=== PATIENT | male | born 1990 | race Caucasian/White ===

== ENCOUNTER 2019-12-22 18:14 | Emergency (ER) | payer BC, OTHER ==
[2019-12-22 18:35] VITALS: BP 135/84; PULSE 113
[2019-12-22] MEDS ORDERED: Ibuprofen 600 MG Tab PO ONE (18:59)
--- NOTE | 2019-12-22 19:02 | EDM.PDOC ---
ED HPI GENERAL MEDICAL PROBLEM - General Chief Complaint: General Stated Complaint: POSSIBLE COVID Time Seen by Provider: 12/22/19 18:46 Source of Information: Reports: Patient, RN Notes Reviewed History Limitations: Reports: No Limitations - History of Present Illness INITIAL COMMENTS - FREE TEXT/NARRATIVE: 28-year-old gentleman presents emergency department a sudden onset of fever body aches and diarrhea, he does have the possibility of Covid exposure - Related Data Allergies Allergy/AdvReac Type Severity Reaction Status Date / Time No Known Allergies Allergy Verified 12/22/19 18:34 Home Meds: Home Meds NK [No Known Home Meds] 10/26/15 [History] Past Medical History Musculoskeletal History: Reports: Fracture Endocrine/Metabolic History: Reports: Obesity/BMI 30+ - Infectious Disease History Infectious Disease History: Reports: Chicken Pox - Past Surgical History Head Surgeries/Procedures: Reports: None Endocrine Surgical History: Reports: None Musculoskeletal Surgical History: Reports: None Dermatological Surgical History: Reports: None Social & Family History - Tobacco Use Tobacco Use Status *Q: Current Every Day Tobacco User Years of Tobacco use: 8 Packs/Tins Daily: 0.5 Used Tobacco, but Quit: No Second Hand Smoke Exposure: No - Caffeine Use Caffeine Use: Reports: Coffee, Energy Drinks, Soda, Tea - Recreational Drug Use Recreational Drug Use: No ED ROS GENERAL - Review of Systems Review Of Systems: See Below Constitutional: Reports: Fever, Chills HEENT: Reports: No Symptoms Respiratory: Reports: No Symptoms Cardiovascular: Reports: No Symptoms GI/Abdominal: Reports: Diarrhea Musculoskeletal: Reports: Muscle Pain ED EXAM, GENERAL - Physical Exam Exam: See Below Exam Limited By: No Limitations General Appearance: Alert, WD/WN, No Apparent Distress Respiratory/Chest: No Respiratory Distress, Lungs Clear, Normal Breath Sounds, No Accessory Muscle Use, Chest Non-Tender Cardiovascular: Regular Rate, Rhythm, No Murmur Course - Vital Signs Last Recorded V/S: Last Vital Signs Temp 101.2 F H 12/22/19 18:40 Pulse 113 H 12/22/19 18:40 Resp 16 12/22/19 18:40 BP 135/84 12/22/19 18:40 Pulse Ox 99 12/22/19 18:40 - Orders/Labs/Meds Orders: Active Orders 24 hr Category Date Time Status CORONAVIRUS COVID-19, [facility] Stat Lab 12/22/19 19:00 Ordered Ibuprofen [Motrin] Med 12/22/19 18:59 Once 600 mg PO ONETIME ONE Departure - Departure Time of Disposition: 19:01 Disposition: Home, Self-Care 01 Condition: Fair Clinical Impression: Viral syndrome - Discharge Information Referrals: Mckay Newsome MD [Primary Care Provider] - Additional Instructions: Use Tylenol or Motrin as needed for symptomatic care your Covid test will be available in a couple of days call return to the emergency department worsening of symptoms Sepsis Event Note (ED) - Evaluation Sepsis Screening Result: Possible Sepsis Risk - Focused Exam Vital Signs: Vital Signs Temp Pulse Resp BP Pulse Ox 12/22/19 18:40 101.2 F H 113 H 16 135/84 99 12/22/19 18:33 101.2 F H 113 H 16 135/84 99 - My Orders Last 24 Hours: My Active Orders 12/22/19 18:59 Ibuprofen [Motrin] 600 mg PO ONETIME ONE 12/22/19 19:00 CORONAVIRUS COVID-19, MARILU Stat - Assessment/Plan Last 24 Hours: My Active Orders 12/22/19 18:59 Ibuprofen [Motrin] 600 mg PO ONETIME ONE 12/22/19 19:00 CORONAVIRUS COVID-19, MARILU Stat Plan: Assessment Acuity = acute Site and laterality = viral syndrome Etiology = suspicious for Covid 19 Manifestations = fever, body aches Location of injury = Home Lab values = Covid test pending Plan Use ibuprofen or Tylenol as needed for body aches Covid test will be available in 2 to 3 days self quarantine This note was dictated using [employer] voice recognition software please call with any questions on syntax or grammar.
== END 2019-12-22 19:24 | disposition home or self-care (01) ==
LOC: JP.ED 18:14
DX: U07.1 COVID-19 (principal); E66.9 Obesity, unspecified; F17.210 Nicotine dependence, cigarettes, uncomplicated; Z68.42 Body mass index [BMI] 45.0-49.9, adult
CPT/HCPCS: 87635; 99283; A9270; 99282; U0002

== ENCOUNTER 2024-03-05 17:16 | Emergency (ER) | payer BC ==
[2024-03-05 18:41] LABS: BASOPHILS ABSOLUTE AUTO 0.07 K/uL (0.00-0.10); BASOPHILS PERCENT AUTO 0.8 % (0.1-1.3); EOSINOPHILS PERCENT AUTO 1.2 % (0.0-5.4); HEMATOCRIT 39.5 % (38.4-49.7); HEMOGLOBIN 14.2 g/dL (12.9-16.9); IMMATURE GRAN PERCENT AUTO 0.1 % (0.0-0.7); LYMPHOCYTES ABSOLUTE AUTO 2.66 K/uL (0.8-3.3); LYMPHOCYTES PERCENT AUTO 30.7 % (11.4-47.7); MEAN CORPUSCULAR HEMOGLOBIN 31.1 pg (31.6-35.5); MEAN CORPUSCULAR HGB CONC 35.9 g/dL (31.6-35.5); MEAN CORPUSCULAR VOLUME 86.4 fL (81.4-99.0); MONOCYTES ABSOLUTE AUTO 0.57 K/uL (0.20-0.90); MONOCYTES PERCENT AUTO 6.6 % (3.3-12.6); NEUTROPHILS ABSOLUTE AUTO 5.26 K/uL (1.0-7.6); NEUTROPHILS PERCENT AUTO 60.6 % (40.0-78.1); PLATELET COUNT,PLT 218 K/uL (130-375); RED BLOOD CELL COUNT 4.57 M/uL (4.14-5.76); WHITE BLOOD CELL COUNT,WBC 8.7 K/uL (3.2-11.0)
[2024-03-05 18:43] LABS: IMMATURE GRAN ABSOLUTE AUTO 0.01 K/uL (0.00-0.23)
[2024-03-05 19:02] LABS: ALANINE AMINOTRANSFERASE,ALT 25 U/L (12-78); ALBUMIN 3.7 g/dL (3.4-5.0); ALKALINE PHOSPHATASE 80 U/L (46-116); ANION GAP 7.8 mmol/L (5.0-14.0); ASPARTATE AMNIOTRANSFERASE,AST 18 U/L (15-37); BILIRUBIN TOTAL 0.2 mg/dL (0.2-1.0); BLOOD UREA NITROGEN,BUN 11 mg/dL (7-18); C-REACTIVE PROTEIN 1.51 mg/dL (<0.50); CALCIUM 8.5 mg/dL (8.5-10.1); CARBON DIOXIDE,CO2 28 mmol/L (21-32); CHLORIDE,CL 105 mmol/L (100-108); CREATININE 0.9 mg/dL (0.8-1.3); EST CRCL DRUG DOSING (CG) 122.79 mL/min; ESTIMATED GFR 117 mL/min (>60); GLUCOSE RANDOM 97 mg/dL (74-106); POTASSIUM,K 4.5 mmol/L (3.6-5.2); PROTEIN TOTAL,TP 7.3 g/dL (6.4-8.2); SODIUM,NA 141 mmol/L (140-148)
[2024-03-05 19:04] LABS: SEDIMENTATION RATE MANUAL 19 mm/hr (0-20)
[2024-03-05] MEDS: SODIUM CHLORIDE 0.9% IV ONE ×2 (20:40→21:30)
[2024-03-05] MEDS: ACYCLOVIR IV ONE ×2 (20:40→21:30)
[2024-03-05 22:37] VITALS: BP 115/65; PULSE 69
== END 2024-03-05 22:57 | disposition home or self-care (01) ==
LOC: JP.ED 17:16 → JP.IVTHER 03-06 05:15
DX: B01.9 Varicella without complication (principal); E66.9 Obesity, unspecified; Z68.41 Body mass index [BMI] 40.0-44.9, adult; F17.210 Nicotine dependence, cigarettes, uncomplicated; Z79.899 Other long term (current) drug therapy
CPT/HCPCS: 36415; 80053; 85025; 85651; 86140; 87449; 96365; 96366; 99283; J0133

== ENCOUNTER 2024-04-12 19:59 | Emergency (ER) | payer BC ==
[2024-04-12 22:07] LABS: APPEARANCE,URINE CLEAR (CLEAR); BILIRUBIN,URINE NEGATIVE (NEGATIVE); COLOR,URINE YELLOW (YELLOW); GLUCOSE,URINE NEGATIVE (NEGATIVE); KETONES,URINE NEGATIVE (NEGATIVE); LEUKOCYTE ESTERASE,URINE NEGATIVE (NEGATIVE); NITRITE,URINE NEGATIVE (NEGATIVE); OCCULT BLOOD,URINE NEGATIVE (NEGATIVE); PH,URINE 8.5 (5.0-8.0); PROTEIN,URINE NEGATIVE (NEGATIVE); UROBILINOGEN,URINE 0.2 EU/dL (0.2-1.0)
[2024-04-12 22:17] LABS: AMORPHOUS SEDIMENT,URINE NOT SEEN; BACTERIA,URINE RARE; EPITHELIAL CELLS,URINE RARE; MUCUS,URINE RARE; RBC,URINE 0-5 (0-5); WBC,URINE 0-5 (0-5)
[2024-04-12 22:43] VITALS: BP 116/66; PULSE 87
== END 2024-04-12 23:00 | disposition home or self-care (01) ==
LOC: JP.ED 19:59
DX: R00.0 Tachycardia, unspecified (principal); Z13.9 Encounter for screening, unspecified; Z79.899 Other long term (current) drug therapy
CPT/HCPCS: 81001; 99284